=== PATIENT | female | born 1970 | race Caucasian/White ===

== ENCOUNTER 2019-09-02 11:16 | Inpatient (IN) | payer MEDICAID ==
[2019-09-02] MEDS ORDERED: Ondansetron 4 MG Tab.DIS PO ONE (12:12)
--- NOTE | 2019-09-02 12:27 | EDM.PDOCBH ---
ED HPI GENERAL MEDICAL PROBLEM - General Chief Complaint: Drug or Alcohol Abuse Stated Complaint: MENTAL EVEL Time Seen by Provider: 09/02/19 12:22 Source of Information: Reports: Patient History Limitations: Reports: No Limitations - History of Present Illness INITIAL COMMENTS - FREE TEXT/NARRATIVE: pt gives a 6 year history of binge drinking. She has drinking alot heavier recently. She at this point needs help and wants to go to detox. Onset: Gradual, Other (pt has been binging for about 1 week ) Duration: Hour(s): Location: Reports: Generalized Associated Symptoms: Reports: Cough, Loss of Appetite, Other (pt is nauseated) - Related Data Allergies Allergy/AdvReac Type Severity Reaction Status Date / Time amoxicillin [Amoxicillin] Allergy Hives Verified 10/04/18 10:46 levofloxacin [From Levaquin] Allergy Hives Verified 10/04/18 10:46 Sulfa (Sulfonamide Allergy Hives Verified 10/04/18 10:46 Antibiotics) Home Meds: Home Meds Aspirin [Vasquez Chewable] 81 mg PO DAILY 03/02/16 [History] Cholecalciferol (Vitamin D3) [Vitamin D3] 2,000 unit PO DAILY 03/02/16 [History] Cyanocobalamin (Vitamin B-12) [Cyanocobalamin Injection] 1,000 mcg IJ .[id number] 03/02/16 [History] Cyanocobalamin (Vitamin B-12) [Vitamin B-12] 1,000 mcg SL DAILY 03/02/16 [ History] Levothyroxine Sodium 50 mcg PO DAILY 03/02/16 [History] Multivit with Iron,Minerals [Flintstones Complete] 1 each PO DAILY 03/02/16 [ History] Simvastatin 10 mg PO DAILY 03/02/16 [History] Thiamine [Vitamin B-1] 100 mg PO BEDTIME 03/02/16 [History] Venlafaxine HCl 50 mg PO BID 03/02/16 [History] Hydrocodone/Acetaminophen [[place] 5-325 Tablet] 1 each PO Q12HR PRN #24 tablet [Rx] Past Medical History HEENT History: Reports: None Cardiovascular History: Reports: High Cholesterol Respiratory History: Reports: None Gastrointestinal History: Reports: Chronic Constipation, GERD, Hemorrhoids, Other (See Below) Other Gastrointestinal History: partial gastrectomy Genitourinary History: Reports: None 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 Musculoskeletal History: Reports: Arthritis, Back Pain, Chronic, Neck Pain, Chronic, Osteoarthritis Other Musculoskeletal History: bilateral hand pain Neurological History: Reports: None Psychiatric History: Reports: Anxiety, Depression, Panic Attack Endocrine/Metabolic History: Reports: Hypothyroidism, Vitamin D Deficiency Hematologic History: Reports: Anemia, B12 Deficiency, Folic Acid, Iron Deficiency Immunologic History: Reports: None Oncologic (Cancer) History: Reports: None Dermatologic History: Reports: None - Infectious Disease History Infectious Disease History: Reports: Chicken Pox - Past Surgical History Head Surgeries/Procedures: Reports: None HEENT Surgical History: Reports: Oral Surgery Cardiovascular Surgical History: Reports: None GI Surgical History: Reports: Cholecystectomy, EGD, Esophageal Dilatation, Phi Fundoplication Female Surgical History: Reports: Breast Biopsy, Section Endocrine Surgical History: Reports: None Musculoskeletal Surgical History: Reports: Arthroscopic Procedure, Carpal Tunnel , Shoulder Surgery Oncologic Surgical History: Reports: Lumpectomy Social & Family History - Tobacco Use Smoking Status *Q: Never Smoker - Caffeine Use Caffeine Use: Reports: Soda - Alcohol Use Date of Last Drink: 09/01/19 - Recreational Drug Use Recreational Drug Use: No ED ROS GENERAL - Review of Systems Review Of Systems: See Below Constitutional: Reports: No Symptoms HEENT: Reports: No Symptoms Respiratory: Reports: No Symptoms Cardiovascular: Reports: No Symptoms Endocrine: Reports: No Symptoms GI/Abdominal: Reports: Nausea, Other (pt had been drinking heavily for the past week. ) Musculoskeletal: Reports: No Symptoms Skin: Reports: No Symptoms Neurological: Reports: No Symptoms ED EXAM, BEHAVIORAL HEALTH - Physical Exam Exam: See Below Text/Narrative:: pt arrived feeling very shaky and with a history of very heavy drinking for the past week. Exam Limited By: No Limitations General Appearance: Alert, Mild Distress Ears: Normal TMs Nose: Normal Inspection Throat/Mouth: Normal Inspection Head: Atraumatic Neck: Normal Inspection Respiratory/Chest: No Respiratory Distress Cardiovascular: Regular Rate, Rhythm, Tachycardia GI/Abdominal: Soft, Non-Tender (Female) Exam: Deferred Rectal (Female) Exam: Deferred Back Exam: Normal Inspection Extremities: Normal Inspection Neurological: Alert, Other ( anxious) Psychiatric: Alert, Normal Cognition COURSE, BEHAVIORAL HEALTH COMP - Course Vital Signs: Last Vital Signs Temp 35.9 C L 09/02/19 11:51 Pulse 133 H 09/02/19 11:51 Resp 24 H 09/02/19 11:51 BP 147/101 H 09/02/19 11:51 Pulse Ox 97 09/02/19 11:51 Orders, Labs, Meds: Active Orders 24 hr Category Date Time Status ABG [BLOOD GAS ARTERIAL] [BG] Stat Lab 09/02/19 13:32 Ordered LACTIC ACID [CHEM] Stat Lab 09/02/19 13:27 Ordered LORazepam [Ativan] Med 09/02/19 14:00 Active 1 mg PO TID Sodium Chloride 0.9% [Normal Saline] 1,000 ml Med 09/02/19 13:00 Active IV ASDIRECTED Medication Orders Sodium Chloride (Normal Saline) 1,000 mls @ 999 mls/hr IV ASDIRECTED JAVIER Lorazepam (Ativan) 1 mg PO TID JAVIER Last Admin: 09/02/19 12:16 Dose: 1 mg Laboratory Tests 09/02/19 09/02/19 09/02/19 Range/Units 11:56 11:56 12:14 WBC 12.3 H (4.5-11.0) K/uL RBC 5.43 (3.30-5.50) M/uL Hgb 13.2 (12.0-15.0) g/dL Hct 40.8 (36.0-48.0) % MCV 75 L (80-98) fL MCH 24 L (27-31) pg MCHC 32 (32-36) % Plt Count 473 H (150-400) K/uL Neut % (Auto) 86 H (36-66) % Lymph % (Auto) 10 L (24-44) % [place] % (Auto) 4 (2-6) % Eos % (Auto) 0 L (2-4) % Baso % (Auto) 0 (0-1) % VBG pH (7.350-7.450) Sodium (140-148) mmol/L Potassium (3.6-5.2) mmol/L Chloride (100-108) mmol/L Carbon Dioxide (21-32) mmol/L Anion Gap (5.0-14.0) mmol/L BUN (7-18) mg/dL Creatinine (0.6-1.0) mg/dL Est Cr Clr Drug Dosing mL/min Estimated GFR (MDRD) (>60) Glucose (74-106) mg/dL Calcium (8.5-10.1) mg/dL Total Bilirubin (0.2-1.0) mg/dL AST (15-37) U/L ALT (12-78) U/L Alkaline Phosphatase (46-116) U/L Total Protein (6.4-8.2) g/dL Albumin (3.4-5.0) g/dL Globulin (2.3-3.5) g/dL Albumin/Globulin Ratio (1.2-2.2) Lipase (73-393) U/L Urine Color Yellow (YELLOW) Urine Appearance Cloudy A (CLEAR) Urine pH 5.5 (5.0-8.0) Ur Specific [place] >= 1.030 (1.008-1.030) Urine Protein 100 H (NEGATIVE) mg/dL Urine Glucose (UA) Negative (NEGATIVE) mg/dL Urine Ketones Negative (NEGATIVE) mg/dL Urine Occult Blood Trace-lysed H (NEGATIVE) Urine Nitrite Negative (NEGATIVE) Urine Bilirubin Negative (NEGATIVE) Urine Urobilinogen 0.2 (0.2-1.0) EU/dL Ur Leukocyte Esterase Negative (NEGATIVE) Urine RBC 0-5 (0-5) Urine WBC 0-5 (0-5) Ur Epithelial Cells Few Amorphous Sediment Few Urine Bacteria Moderate Urine Mucus Few Urine Other See note Salicylates (2.0-20.0) mg/dL Urine Opiates Screen Negative (NEGATIVE) Ur Oxycodone Screen Negative (NEGATIVE) Urine Methadone Screen Negative (NEGATIVE) Ur Propoxyphene Screen Negative (NEGATIVE) Ur Barbiturates Screen Negative (NEGATIVE) Ur Tricyclics Screen Negative (NEGATIVE) Ur Phencyclidine Scrn Negative (NEGATIVE) Ur Amphetamine Screen Negative (NEGATIVE) U Methamphetamines Scrn Negative (NEGATIVE) Urine MDMA Screen Negative (NEGATIVE) U Benzodiazepines Scrn Negative (NEGATIVE) U Cocaine Metab Screen Negative (NEGATIVE) U Marijuana (THC) Screen Negative (NEGATIVE) Ethyl Alcohol mg/dL 09/02/19 09/02/19 09/02/19 Range/Units 12:14 12:14 12:47 WBC (4.5-11.0) K/uL RBC (3.30-5.50) M/uL Hgb (12.0-15.0) g/dL Hct (36.0-48.0) % MCV (80-98) fL MCH (27-31) pg MCHC (32-36) % Plt Count (150-400) K/uL Neut % (Auto) (36-66) % Lymph % (Auto) (24-44) % [place] % (Auto) (2-6) % Eos % (Auto) (2-4) % Baso % (Auto) (0-1) % VBG pH 7.231 L (7.350-7.450) Sodium 134 L (140-148) mmol/L Potassium 4.0 (3.6-5.2) mmol/L Chloride 96 L (100-108) mmol/L Carbon Dioxide 11 L (21-32) mmol/L Anion Gap 31.0 H (5.0-14.0) mmol/L BUN 31 H (7-18) mg/dL Creatinine 1.0 (0.6-1.0) mg/dL Est Cr Clr Drug Dosing 55.68 mL/min Estimated GFR (MDRD) 59 L (>60) Glucose 152 H (74-106) mg/dL Calcium 8.1 L (8.5-10.1) mg/dL Total Bilirubin 0.7 (0.2-1.0) mg/dL AST 61 H (15-37) U/L ALT 70 (12-78) U/L Alkaline Phosphatase 147 H (46-116) U/L Total Protein 8.0 (6.4-8.2) g/dL Albumin 4.0 (3.4-5.0) g/dL Globulin 4.0 H (2.3-3.5) g/dL Albumin/Globulin Ratio 1.0 L (1.2-2.2) Lipase (73-393) U/L Urine Color (YELLOW) Urine Appearance (CLEAR) Urine pH (5.0-8.0) Ur Specific [place] (1.008-1.030) Urine Protein (NEGATIVE) mg/dL Urine Glucose (UA) (NEGATIVE) mg/dL Urine Ketones (NEGATIVE) mg/dL Urine Occult Blood (NEGATIVE) Urine Nitrite (NEGATIVE) Urine Bilirubin (NEGATIVE) Urine Urobilinogen (0.2-1.0) EU/dL Ur Leukocyte Esterase (NEGATIVE) Urine RBC (0-5) Urine WBC (0-5) Ur Epithelial Cells Amorphous Sediment Urine Bacteria Urine Mucus Urine Other Salicylates (2.0-20.0) mg/dL Urine Opiates Screen (NEGATIVE) Ur Oxycodone Screen (NEGATIVE) Urine Methadone Screen (NEGATIVE) Ur Propoxyphene Screen (NEGATIVE) Ur Barbiturates Screen (NEGATIVE) Ur Tricyclics Screen (NEGATIVE) Ur Phencyclidine Scrn (NEGATIVE) Ur Amphetamine Screen (NEGATIVE) U Methamphetamines Scrn (NEGATIVE) Urine MDMA Screen (NEGATIVE) U Benzodiazepines Scrn (NEGATIVE) U Cocaine Metab Screen (NEGATIVE) U Marijuana (THC) Screen (NEGATIVE) Ethyl Alcohol 138 mg/dL 09/02/19 09/02/19 Range/Units 12:48 13:27 WBC (4.5-11.0) K/uL RBC (3.30-5.50) M/uL Hgb (12.0-15.0) g/dL Hct (36.0-48.0) % MCV (80-98) fL MCH (27-31) pg MCHC (32-36) % Plt Count (150-400) K/uL Neut % (Auto) (36-66) % Lymph % (Auto) (24-44) % [place] % (Auto) (2-6) % Eos % (Auto) (2-4) % Baso % (Auto) (0-1) % VBG pH (7.350-7.450) Sodium (140-148) mmol/L Potassium (3.6-5.2) mmol/L Chloride (100-108) mmol/L Carbon Dioxide (21-32) mmol/L Anion Gap (5.0-14.0) mmol/L BUN (7-18) mg/dL Creatinine (0.6-1.0) mg/dL Est Cr Clr Drug Dosing mL/min Estimated GFR (MDRD) (>60) Glucose (74-106) mg/dL Calcium (8.5-10.1) mg/dL Total Bilirubin (0.2-1.0) mg/dL AST (15-37) U/L ALT (12-78) U/L Alkaline Phosphatase (46-116) U/L Total Protein (6.4-8.2) g/dL Albumin (3.4-5.0) g/dL Globulin (2.3-3.5) g/dL Albumin/Globulin Ratio (1.2-2.2) Lipase 275 (73-393) U/L Urine Color (YELLOW) Urine Appearance (CLEAR) Urine pH (5.0-8.0) Ur Specific [place] (1.008-1.030) Urine Protein (NEGATIVE) mg/dL Urine Glucose (UA) (NEGATIVE) mg/dL Urine Ketones (NEGATIVE) mg/dL Urine Occult Blood (NEGATIVE) Urine Nitrite (NEGATIVE) Urine Bilirubin (NEGATIVE) Urine Urobilinogen (0.2-1.0) EU/dL Ur Leukocyte Esterase (NEGATIVE) Urine RBC (0-5) Urine WBC (0-5) Ur Epithelial Cells Amorphous Sediment Urine Bacteria Urine Mucus Urine Other Salicylates 1.6 L (2.0-20.0) mg/dL Urine Opiates Screen (NEGATIVE) Ur Oxycodone Screen (NEGATIVE) Urine Methadone Screen (NEGATIVE) Ur Propoxyphene Screen (NEGATIVE) Ur Barbiturates Screen (NEGATIVE) Ur Tricyclics Screen (NEGATIVE) Ur Phencyclidine Scrn (NEGATIVE) Ur Amphetamine Screen (NEGATIVE) U Methamphetamines Scrn (NEGATIVE) Urine MDMA Screen (NEGATIVE) U Benzodiazepines Scrn (NEGATIVE) U Cocaine Metab Screen (NEGATIVE) U Marijuana (THC) Screen (NEGATIVE) Ethyl Alcohol mg/dL Medications Generic Name Dose Route Start Last Admin Trade Name Freq PRN Reason Stop Dose Admin Sodium Chloride 1,000 mls @ 999 mls/hr 09/02/19 13:00 Normal Saline IV ASDIRECTED JAVIER Lorazepam 1 mg 09/02/19 14:00 09/02/19 12:16 Ativan PO 1 mg TID JAVIER Administration Discontinued Medications Generic Name Dose Route Start Last Admin Trade Name Freq PRN Reason Stop Dose Admin Ondansetron HCl 4 mg 09/02/19 12:12 09/02/19 12:16 Zofran Odt PO 09/02/19 12:13 4 mg ONETIME ONE Administration Medical Clearance: 09/02/19 12:25 pt arrived with a history of binge drinking for the opast week. These episodes are more and more frequent. 09/02/19 13:40 pt was found to have a ph of 7.2. She has a wide anion gap. She has a co2 of 11. Departure - Departure Time of Disposition: 13:36 Disposition: Admitted As Inpatient 65 Condition: Fair Clinical Impression: Metabolic acidosis, Hyperglycemia, Drinking binge - Discharge Information Referrals: Michelle Awad CNM [Primary Care Provider] - Forms: ED Department Discharge Care Plan Goals: admit to Dr Bazan Sepsis Event Note - Evaluation Sepsis Screening Result: No Definite Risk - Focused Exam Vital Signs: Vital Signs Temp Pulse Resp BP Pulse Ox 09/02/19 11:51 35.9 C L 133 H 24 H 147/101 H 97 09/02/19 11:41 35.9 C L 133 H 24 H 147/101 H 97 Date Exam was Performed: 09/02/19 Time Exam was Performed: 13:38 - My Orders Last 24 Hours: My Active Orders 09/02/19 13:00 Sodium Chloride 0.9% [Normal Saline] 1,000 ml IV ASDIRECTED 09/02/19 13:27 LACTIC ACID [CHEM] Stat 09/02/19 13:32 ABG [BLOOD GAS ARTERIAL] [BG] Stat 09/02/19 14:00 LORazepam [Ativan] 1 mg PO TID - Assessment/Plan Last 24 Hours: My Active Orders 09/02/19 13:00 Sodium Chloride 0.9% [Normal Saline] 1,000 ml IV ASDIRECTED 09/02/19 13:27 LACTIC ACID [CHEM] Stat 09/02/19 13:32 ABG [BLOOD GAS ARTERIAL] [BG] Stat 09/02/19 14:00 LORazepam [Ativan] 1 mg PO TID
[2019-09-02] MEDS ORDERED: Sodium Chloride 0.9% 1,000 ML IV SCH (13:00)
[2019-09-02] MEDS ORDERED: LORazepam 1 MG Tab PO SCH (14:00)
--- NOTE | 2019-09-02 14:52 | PCM.HP.2 ---
H&P History of Present Illness - General Date of Service: 09/02/19 Admit Problem/Dx: Admission Diagnosis/Problem Admission Diagnosis/Problem Metabolic acidosis Source of Information: Patient, Family, Provider, RN Notes Reviewed History Limitations: Reports: No Limitations - History of Present Illness Initial Comments - Free Text/Narative: Ms. Meyer is a 49-year-old woman who was admitted through the emergency department with elevated anion gap metabolic acidosis and elevated lactic acid level, secondary to chronic alcohol abuse. She has a longstanding history of heavy alcohol use and has consumed alcohol daily over the past 8 months. She decided to get some help today and presented to the emergency department for medical clearance prior to going to detox. Laboratory tests show significant metabolic acidosis with a carbon dioxide level of 11, anion gap of 31, and arterial blood gases consistent with metabolic acidosis with respiratory compensation. She strongly denies any history of methanol intake, ethylene glycol, or inhalations. Salicylate level is low and she has no history of diabetes or evidence of ketoacidosis. Alcohol level was elevated on admission, she is already showing some symptoms of alcohol withdrawal. - Related Data Allergies/Adverse Reactions: Allergies Allergy/AdvReac Type Severity Reaction Status Date / Time amoxicillin [Amoxicillin] Allergy Hives Verified 10/04/18 10:46 levofloxacin [From Levaquin] Allergy Hives Verified 10/04/18 10:46 Sulfa (Sulfonamide Allergy Hives Verified 10/04/18 10:46 Antibiotics) Home Medications: Home Meds Aspirin [Vasquez Chewable] 81 mg PO DAILY 03/02/16 [History] Cholecalciferol (Vitamin D3) [Vitamin D3] 2,000 unit PO DAILY 03/02/16 [History] Cyanocobalamin (Vitamin B-12) [Cyanocobalamin Injection] 1,000 mcg [id number] 03/02/16 [History] Cyanocobalamin (Vitamin B-12) [Vitamin B-12] 1,000 mcg SL DAILY 03/02/16 [ History] Levothyroxine Sodium 50 mcg PO DAILY 03/02/16 [History] Multivit with Iron,Minerals [Flintstones Complete] 1 each PO DAILY 03/02/16 [ History] Simvastatin 10 mg PO DAILY 03/02/16 [History] Thiamine [Vitamin B-1] 100 mg PO BEDTIME 03/02/16 [History] Venlafaxine HCl 50 mg PO BID 03/02/16 [History] Hydrocodone/Acetaminophen [Petrolia 5-325 Tablet] 1 each PO Q12HR PRN #24 tablet [Rx] Past Medical History HEENT History: Reports: None Cardiovascular History: Reports: High Cholesterol Respiratory History: Reports: None Gastrointestinal History: Reports: Chronic Constipation, GERD, Hemorrhoids, Other (See Below) Other Gastrointestinal History: partial gastrectomy Genitourinary History: Reports: None COKEMAN History: Reports: Other OB/BYN History: c section X3 Musculoskeletal History: Reports: Arthritis, Back Pain, Chronic, Neck Pain, Chronic, Osteoarthritis Other Musculoskeletal History: bilateral hand pain Neurological History: Reports: None Psychiatric History: Reports: Anxiety, Depression, Panic Attack Endocrine/Metabolic History: Reports: Hypothyroidism, Vitamin D Deficiency Hematologic History: Reports: Anemia, B12 Deficiency, Folic Acid, Iron Deficiency Immunologic History: Reports: None Oncologic (Cancer) History: Reports: None Dermatologic History: Reports: None - Infectious Disease History Infectious Disease History: Reports: Chicken Pox - Past Surgical History Head Surgeries/Procedures: Reports: None HEENT Surgical History: Reports: Oral Surgery Cardiovascular Surgical History: Reports: None GI Surgical History: Reports: Cholecystectomy, EGD, Esophageal Dilatation, Phi Fundoplication Female Surgical History: Reports: Breast Biopsy, Section Endocrine Surgical History: Reports: None Musculoskeletal Surgical History: Reports: Arthroscopic Procedure, Carpal Tunnel , Shoulder Surgery Oncologic Surgical History: Reports: Lumpectomy Social & Family History - Tobacco Use Smoking Status *Q: Never Smoker - Caffeine Use Caffeine Use: Reports: Soda - Alcohol Use Date of Last Drink: 09/01/19 - Recreational Drug Use Recreational Drug Use: No H&P Review of Systems - Review of Systems: Review Of Systems: See Below General: Reports: Malaise, Weakness, Fatigue. Denies: Fever, Chills HEENT: Reports: No Symptoms Pulmonary: Reports: No Symptoms Cardiovascular: Reports: No Symptoms Gastrointestinal: Reports: No Symptoms Genitourinary: Reports: No Symptoms Musculoskeletal: Reports: No Symptoms Skin: Reports: No Symptoms Psychiatric: Reports: No Symptoms Neurological: Reports: No Symptoms Hematologic/Lymphatic: Reports: No Symptoms Immunologic: Reports: No Symptoms Exam - Exam Exam: See Below - Vital Signs Vital Signs: Last Vital Signs Temp 96.7 F L 09/02/19 11:51 Pulse 124 H 09/02/19 14:40 Resp 16 09/02/19 14:40 BP 160/91 H 09/02/19 14:40 Pulse Ox 97 09/02/19 14:40 Weight: 149 lb 14.629 oz - Exam Quality Assessment: DVT Prophylaxis General: Alert, Oriented, Cooperative HEENT: Conjunctiva Clear, Hearing Intact, Normal Nasal Septum, Posterior Pharynx Clear, Pupils Equal. No: Mucosa Moist & [place] Neck: Supple, Trachea Midline, +2 Carotid Pulse wo Bruit Lungs: Clear to Auscultation, Normal Respiratory Effort Cardiovascular: Regular Rate, Regular Rhythm, Normal S1, Normal S2. No: Systolic Murmur, Diastolic Murmur GI/Abdominal Exam: Soft, Non-Tender, No Organomegaly, No Distention Back Exam: Normal Inspection, Full Range of Motion Extremities: Non-Tender, No Pedal Edema Skin: Warm, Dry, Intact Neurological: Cranial Nerves Intact, Strength Equal Bilateral, Normal Speech, Normal Tone, Sensation Intact. No: Focal Deficit Neuro Extensive - Mental Status: Alert, Oriented x3, Normal Mood/Affect, Normal Cognition, Memory Intact - Patient Data Lab Results Last 24 hrs: Laboratory Results - last 24 hr 09/02/19 09/02/19 09/02/19 Range/Units 11:56 11:56 12:14 WBC 12.3 H (4.5-11.0) K/uL RBC 5.43 (3.30-5.50) M/uL Hgb 13.2 (12.0-15.0) g/dL Hct 40.8 (36.0-48.0) % MCV 75 L (80-98) fL MCH 24 L (27-31) pg MCHC 32 (32-36) % Plt Count 473 H (150-400) K/uL Neut % (Auto) 86 H (36-66) % Lymph % (Auto) 10 L (24-44) % [place] % (Auto) 4 (2-6) % Eos % (Auto) 0 L (2-4) % Baso % (Auto) 0 (0-1) % Puncture Site ABG pH (7.350-7.450) ABG pCO2 (35.0-42.0) mmHg ABG pO2 (75.0-100.0) mmHg ABG HCO3 (22.0-26.0) mmol/L ABG Total CO2 (21.0-25.0) mmol/L ABG O2 Saturation (95.0-98.0) % ABG O2 Content (15.0-23.0) %vol ABG Base Excess mm/L ABG Hemoglobin (12.0-16.0) g/dL ABG Oxyhemoglobin % ABG Carboxyhemoglobin (0.0-1.6) % ABG Methemoglobin % [place] Test VBG pH (7.350-7.450) O2 Delivery Device Sodium (140-148) mmol/L Potassium (3.6-5.2) mmol/L Chloride (100-108) mmol/L Carbon Dioxide (21-32) mmol/L Anion Gap (5.0-14.0) mmol/L BUN (7-18) mg/dL Creatinine (0.6-1.0) mg/dL Est Cr Clr Drug Dosing mL/min Estimated GFR (MDRD) (>60) Glucose (74-106) mg/dL Lactic Acid (0.4-2.0) mmol/L Calcium (8.5-10.1) mg/dL Total Bilirubin (0.2-1.0) mg/dL AST (15-37) U/L ALT (12-78) U/L Alkaline Phosphatase (46-116) U/L Total Protein (6.4-8.2) g/dL Albumin (3.4-5.0) g/dL Globulin (2.3-3.5) g/dL Albumin/Globulin Ratio (1.2-2.2) Lipase (73-393) U/L Urine Color Yellow (YELLOW) Urine Appearance Cloudy A (CLEAR) Urine pH 5.5 (5.0-8.0) Ur Specific Tiline >= 1.030 (1.008-1.030) Urine Protein 100 H (NEGATIVE) mg/dL Urine Glucose (UA) Negative (NEGATIVE) mg/dL Urine Ketones Negative (NEGATIVE) mg/dL Urine Occult Blood Trace-lysed H (NEGATIVE) Urine Nitrite Negative (NEGATIVE) Urine Bilirubin Negative (NEGATIVE) Urine Urobilinogen 0.2 (0.2-1.0) EU/dL Ur Leukocyte Esterase Negative (NEGATIVE) Urine RBC 0-5 (0-5) Urine WBC 0-5 (0-5) Ur Epithelial Cells Few Amorphous Sediment Few Urine Bacteria Moderate Urine Mucus Few Urine Other See note Salicylates (2.0-20.0) mg/dL Urine Opiates Screen Negative (NEGATIVE) Ur Oxycodone Screen Negative (NEGATIVE) Urine Methadone Screen Negative (NEGATIVE) Ur Propoxyphene Screen Negative (NEGATIVE) Ur Barbiturates Screen Negative (NEGATIVE) Ur Tricyclics Screen Negative (NEGATIVE) Ur Phencyclidine Scrn Negative (NEGATIVE) Ur Amphetamine Screen Negative (NEGATIVE) U Methamphetamines Scrn Negative (NEGATIVE) Urine MDMA Screen Negative (NEGATIVE) U Benzodiazepines Scrn Negative (NEGATIVE) U Cocaine Metab Screen Negative (NEGATIVE) U Marijuana (THC) Screen Negative (NEGATIVE) Ethyl Alcohol mg/dL 09/02/19 09/02/19 09/02/19 Range/Units 12:14 12:14 12:47 WBC (4.5-11.0) K/uL RBC (3.30-5.50) M/uL Hgb (12.0-15.0) g/dL Hct (36.0-48.0) % MCV (80-98) fL MCH (27-31) pg MCHC (32-36) % Plt Count (150-400) K/uL Neut % (Auto) (36-66) % Lymph % (Auto) (24-44) % [place] % (Auto) (2-6) % Eos % (Auto) (2-4) % Baso % (Auto) (0-1) % Puncture Site ABG pH (7.350-7.450) ABG pCO2 (35.0-42.0) mmHg ABG pO2 (75.0-100.0) mmHg ABG HCO3 (22.0-26.0) mmol/L ABG Total CO2 (21.0-25.0) mmol/L ABG O2 Saturation (95.0-98.0) % ABG O2 Content (15.0-23.0) %vol ABG Base Excess mm/L ABG Hemoglobin (12.0-16.0) g/dL ABG Oxyhemoglobin % ABG Carboxyhemoglobin (0.0-1.6) % ABG Methemoglobin % [place] Test VBG pH 7.231 L (7.350-7.450) O2 Delivery Device Sodium 134 L (140-148) mmol/L Potassium 4.0 (3.6-5.2) mmol/L Chloride 96 L (100-108) mmol/L Carbon Dioxide 11 L (21-32) mmol/L Anion Gap 31.0 H (5.0-14.0) mmol/L BUN 31 H (7-18) mg/dL Creatinine 1.0 (0.6-1.0) mg/dL Est Cr Clr Drug Dosing 55.68 mL/min Estimated GFR (MDRD) 59 L (>60) Glucose 152 H (74-106) mg/dL Lactic Acid (0.4-2.0) mmol/L Calcium 8.1 L (8.5-10.1) mg/dL Total Bilirubin 0.7 (0.2-1.0) mg/dL AST 61 H (15-37) U/L ALT 70 (12-78) U/L Alkaline Phosphatase 147 H (46-116) U/L Total Protein 8.0 (6.4-8.2) g/dL Albumin 4.0 (3.4-5.0) g/dL Globulin 4.0 H (2.3-3.5) g/dL Albumin/Globulin Ratio 1.0 L (1.2-2.2) Lipase (73-393) U/L Urine Color (YELLOW) Urine Appearance (CLEAR) Urine pH (5.0-8.0) Ur Specific Tiline (1.008-1.030) Urine Protein (NEGATIVE) mg/dL Urine Glucose (UA) (NEGATIVE) mg/dL Urine Ketones (NEGATIVE) mg/dL Urine Occult Blood (NEGATIVE) Urine Nitrite (NEGATIVE) Urine Bilirubin (NEGATIVE) Urine Urobilinogen (0.2-1.0) EU/dL Ur Leukocyte Esterase (NEGATIVE) Urine RBC (0-5) Urine WBC (0-5) Ur Epithelial Cells Amorphous Sediment Urine Bacteria Urine Mucus Urine Other Salicylates (2.0-20.0) mg/dL Urine Opiates Screen (NEGATIVE) Ur Oxycodone Screen (NEGATIVE) Urine Methadone Screen (NEGATIVE) Ur Propoxyphene Screen (NEGATIVE) Ur Barbiturates Screen (NEGATIVE) Ur Tricyclics Screen (NEGATIVE) Ur Phencyclidine Scrn (NEGATIVE) Ur Amphetamine Screen (NEGATIVE) U Methamphetamines Scrn (NEGATIVE) Urine MDMA Screen (NEGATIVE) U Benzodiazepines Scrn (NEGATIVE) U Cocaine Metab Screen (NEGATIVE) U Marijuana (THC) Screen (NEGATIVE) Ethyl Alcohol 138 mg/dL 09/02/19 09/02/19 09/02/19 Range/Units 12:48 13:27 13:27 WBC (4.5-11.0) K/uL RBC (3.30-5.50) M/uL Hgb (12.0-15.0) g/dL Hct (36.0-48.0) % MCV (80-98) fL MCH (27-31) pg MCHC (32-36) % Plt Count (150-400) K/uL Neut % (Auto) (36-66) % Lymph % (Auto) (24-44) % [place] % (Auto) (2-6) % Eos % (Auto) (2-4) % Baso % (Auto) (0-1) % Puncture Site ABG pH (7.350-7.450) ABG pCO2 (35.0-42.0) mmHg ABG pO2 (75.0-100.0) mmHg ABG HCO3 (22.0-26.0) mmol/L ABG Total CO2 (21.0-25.0) mmol/L ABG O2 Saturation (95.0-98.0) % ABG O2 Content (15.0-23.0) %vol ABG Base Excess mm/L ABG Hemoglobin (12.0-16.0) g/dL ABG Oxyhemoglobin % ABG Carboxyhemoglobin (0.0-1.6) % ABG Methemoglobin % [place] Test VBG pH (7.350-7.450) O2 Delivery Device Sodium (140-148) mmol/L Potassium (3.6-5.2) mmol/L Chloride (100-108) mmol/L Carbon Dioxide (21-32) mmol/L Anion Gap (5.0-14.0) mmol/L BUN (7-18) mg/dL Creatinine (0.6-1.0) mg/dL Est Cr Clr Drug Dosing mL/min Estimated GFR (MDRD) (>60) Glucose (74-106) mg/dL Lactic Acid 11.4 H (0.4-2.0) mmol/L Calcium (8.5-10.1) mg/dL Total Bilirubin (0.2-1.0) mg/dL AST (15-37) U/L ALT (12-78) U/L Alkaline Phosphatase (46-116) U/L Total Protein (6.4-8.2) g/dL Albumin (3.4-5.0) g/dL Globulin (2.3-3.5) g/dL Albumin/Globulin Ratio (1.2-2.2) Lipase 275 (73-393) U/L Urine Color (YELLOW) Urine Appearance (CLEAR) Urine pH (5.0-8.0) Ur Specific Tiline (1.008-1.030) Urine Protein (NEGATIVE) mg/dL Urine Glucose (UA) (NEGATIVE) mg/dL Urine Ketones (NEGATIVE) mg/dL Urine Occult Blood (NEGATIVE) Urine Nitrite (NEGATIVE) Urine Bilirubin (NEGATIVE) Urine Urobilinogen (0.2-1.0) EU/dL Ur Leukocyte Esterase (NEGATIVE) Urine RBC (0-5) Urine WBC (0-5) Ur Epithelial Cells Amorphous Sediment Urine Bacteria Urine Mucus Urine Other Salicylates 1.6 L (2.0-20.0) mg/dL Urine Opiates Screen (NEGATIVE) Ur Oxycodone Screen (NEGATIVE) Urine Methadone Screen (NEGATIVE) Ur Propoxyphene Screen (NEGATIVE) Ur Barbiturates Screen (NEGATIVE) Ur Tricyclics Screen (NEGATIVE) Ur Phencyclidine Scrn (NEGATIVE) Ur Amphetamine Screen (NEGATIVE) U Methamphetamines Scrn (NEGATIVE) Urine MDMA Screen (NEGATIVE) U Benzodiazepines Scrn (NEGATIVE) U Cocaine Metab Screen (NEGATIVE) U Marijuana (THC) Screen (NEGATIVE) Ethyl Alcohol mg/dL 09/02/19 Range/Units 13:32 WBC (4.5-11.0) K/uL RBC (3.30-5.50) M/uL Hgb (12.0-15.0) g/dL Hct (36.0-48.0) % MCV (80-98) fL MCH (27-31) pg MCHC (32-36) % Plt Count (150-400) K/uL Neut % (Auto) (36-66) % Lymph % (Auto) (24-44) % [place] % (Auto) (2-6) % Eos % (Auto) (2-4) % Baso % (Auto) (0-1) % Puncture Site Lt radial ABG pH 7.293 L (7.350-7.450) ABG pCO2 24.8 L (35.0-42.0) mmHg ABG pO2 118.0 H (75.0-100.0) mmHg ABG HCO3 11.6 L (22.0-26.0) mmol/L ABG Total CO2 10.6 L (21.0-25.0) mmol/L ABG O2 Saturation 96.2 (95.0-98.0) % ABG O2 Content 17.5 (15.0-23.0) %vol ABG Base Excess -13.2 mm/L ABG Hemoglobin 13.2 (12.0-16.0) g/dL ABG Oxyhemoglobin 93.6 % ABG Carboxyhemoglobin 0.5 (0.0-1.6) % ABG Methemoglobin 2.2 % [place] Test Passed VBG pH (7.350-7.450) O2 Delivery Device Room air Sodium (140-148) mmol/L Potassium (3.6-5.2) mmol/L Chloride (100-108) mmol/L Carbon Dioxide (21-32) mmol/L Anion Gap (5.0-14.0) mmol/L BUN (7-18) mg/dL Creatinine (0.6-1.0) mg/dL Est Cr Clr Drug Dosing mL/min Estimated GFR (MDRD) (>60) Glucose (74-106) mg/dL Lactic Acid (0.4-2.0) mmol/L Calcium (8.5-10.1) mg/dL Total Bilirubin (0.2-1.0) mg/dL AST (15-37) U/L ALT (12-78) U/L Alkaline Phosphatase (46-116) U/L Total Protein (6.4-8.2) g/dL Albumin (3.4-5.0) g/dL Globulin (2.3-3.5) g/dL Albumin/Globulin Ratio (1.2-2.2) Lipase (73-393) U/L Urine Color (YELLOW) Urine Appearance (CLEAR) Urine pH (5.0-8.0) Ur Specific Tiline (1.008-1.030) Urine Protein (NEGATIVE) mg/dL Urine Glucose (UA) (NEGATIVE) mg/dL Urine Ketones (NEGATIVE) mg/dL Urine Occult Blood (NEGATIVE) Urine Nitrite (NEGATIVE) Urine Bilirubin (NEGATIVE) Urine Urobilinogen (0.2-1.0) EU/dL Ur Leukocyte Esterase (NEGATIVE) Urine RBC (0-5) Urine WBC (0-5) Ur Epithelial Cells Amorphous Sediment Urine Bacteria Urine Mucus Urine Other Salicylates (2.0-20.0) mg/dL Urine Opiates Screen (NEGATIVE) Ur Oxycodone Screen (NEGATIVE) Urine Methadone Screen (NEGATIVE) Ur Propoxyphene Screen (NEGATIVE) Ur Barbiturates Screen (NEGATIVE) Ur Tricyclics Screen (NEGATIVE) Ur Phencyclidine Scrn (NEGATIVE) Ur Amphetamine Screen (NEGATIVE) U Methamphetamines Scrn (NEGATIVE) Urine MDMA Screen (NEGATIVE) U Benzodiazepines Scrn (NEGATIVE) U Cocaine Metab Screen (NEGATIVE) U Marijuana (THC) Screen (NEGATIVE) Ethyl Alcohol mg/dL Result Diagrams: 09/02/19 12:14 09/02/19 12:14 Sepsis Event Note - Evaluation Sepsis Screening Result: No Definite Risk - Focused Exam Vital Signs: Vital Signs Temp Pulse Resp BP Pulse Ox 09/02/19 14:40 124 H 16 160/91 H 97 09/02/19 11:51 96.7 F L 133 H 24 H 147/101 H 97 09/02/19 11:41 96.7 F L 133 H 24 H 147/101 H 97 Date Exam was Performed: 09/02/19 Time Exam was Performed: 15:30 *Q Meaningful Use (ADM) - VTE Risk Assess *Q Each Risk Factor Represents 1 Point: Age 41 - 59 years, Obesity ( BMI > 25 kg/m2 ) Total Score 1 Point Risk Factors: 2 Each Risk Factor Represents 2 Points: None Total Score 2 Point Risk Factors: 0 Each Risk Factor Represents 3 Points: None Total Score 3 Point Risk Factors: 0 Each Risk Factor Represents 5 Points: None Total Score 5 Point Risk Factors: 0 Venous Thromboembolism Risk Factor Score *Q: 2 Problem List Initiated/Reviewed/Updated: Yes Orders Last 24hrs: Active Orders 24 hr Category Date Time Status Patient Status Manage Transfer [TRANSFER] Routine ADT 09/02/19 14:38 Ordered LORazepam [Ativan] Med 09/02/19 14:00 Active 1 mg PO TID Sodium Chloride 0.9% [Normal Saline] 1,000 ml Med 09/02/19 13:00 Active IV ASDIRECTED Resuscitation Status Routine Resus Stat 03/02/20 14:42 Ordered Medication Orders Sodium Chloride (Normal Saline) 1,000 mls @ 999 mls/hr IV ASDIRECTED [facility] Last Admin: 09/02/19 14:03 Dose: 999 mls/hr Lorazepam (Ativan) 1 mg PO TID [facility] Last Admin: 09/02/19 12:16 Dose: 1 mg Assessment/Plan Comment:: ASSESSMENT AND PLAN ELEVATED ANION GAP METABOLIC ACIDOSIS-likely secondary to chronic alcohol use with dehydration and elevation in lactic acid level. No evidence of acute sepsis or other ingestions. -Vigorous IV fluid replacement -Recheck labs including BMP and lactic acid level later today and in a.m. CHRONIC ALCOHOL ABUSE-will need to monitor closely for any evidence of alcohol withdrawal -Alcohol withdrawal protocol -Gabapentin 400 mg every 8 hours x4 days, then 200 mg every 8 hours for an additional 4 days. -We will provide information and resources for alcohol treatment after discharge CHRONIC ANXIETY-likely a contributing factor to ongoing alcohol use -Increase Effexor to 75 mg twice daily MAINTENANCE ISSUES -DVT prophylaxis; SCUDs -GI prophylaxis; not indicated -Polanco catheter; not indicated -Nutrition; regular diet -Nicotine dependence; not required CODE STATUS-FULL CODE ADMISSION STATUS-patient will be admitted to inpatient status, expect at least a 2 night hospital stay for evaluation and management of problems as outlined above. At the time of this admission I do not reasonably expected evaluation and management of this problem will require more than a 96 hour hospital stay. DISPOSITION-anticipate discharge to home after the hospital stay. PRIMARY CARE PROVIDER-Michelle Castaneda - Mortality Measure Prognosis:: Good
[2019-09-02] MEDS ORDERED: Polyethylene Glycol 3350 Powder 17 GM Packet PO PRN (15:30)
[2019-09-02] MEDS ORDERED: Sodium Chloride 0.9% 10 ML Syringe FLUSH PRN (15:30)
[2019-09-02] MEDS ORDERED: Ondansetron 4 MG/2 ML SDV IV PRN (15:30)
[2019-09-02] MEDS ORDERED: Acetaminophen 325 MG Tab PO PRN (15:30)
[2019-09-02] MEDS: LORazepam 1 MG Tab PO SCH ×2 (15:39→17:28)
[2019-09-02] MEDS: Sodium Chloride 0.9% 1,000 ML IV SCH ×3 (15:40→23:44)
[2019-09-02] MEDS ORDERED: MVI, Adult with Vitamin K 10 ML, Thiamine 100 MG, Folic Acid 1 MG, Magnesium Sulfate 2 ... IV ONE ×5 (16:00)
[2019-09-02] MEDS: Gabapentin 400 MG Cap PO SCH (16:25)
[2019-09-02] MEDS: Folic Acid 1 MG Tab PO SCH (16:25)
[2019-09-02] MEDS: LORazepam 2 MG/ML SDV IV SCH ×3 (18:32→21:53)
[2019-09-02] MEDS: Venlafaxine 75 MG Tab PO SCH (20:04)
[2019-09-02] MEDS ORDERED: Thiamine 100 MG Tab PO SCH (21:00)
[2019-09-03] MEDS: LORazepam 2 MG/ML SDV IV SCH (00:33)
[2019-09-03] MEDS: Gabapentin 400 MG Cap PO SCH ×2 (01:42→08:20)
[2019-09-03] MEDS ORDERED: Levothyroxine 50 MCG Tab PO SCH (07:30)
[2019-09-03 07:54] VITALS: BP 120/85; PULSE 84
[2019-09-03] MEDS: Folic Acid 1 MG Tab PO SCH (08:20)
[2019-09-03] MEDS: Venlafaxine 75 MG Tab PO SCH (08:20)
[2019-09-03] MEDS: Sodium Chloride 0.9% 1,000 ML IV SCH (08:41)
[2019-09-03] MEDS: LORazepam 1 MG Tab PO SCH (08:41)
[2019-09-03] MEDS ORDERED: Aspirin 81 MG Tab.Chew PO SCH (09:00)
[2019-09-03] MEDS ORDERED: Simvastatin 20 MG Tab PO SCH ×2 (09:00→21:00)
--- NOTE | 2019-09-03 10:25 | PCM.DCSUM1 ---
Discharge Summary - Hospital Course Brief History: Ms. Meyer is a 49-year-old woman who was admitted through the emergency department with alcohol intoxication and elevated anion gap metabolic acidosis secondary to chronic alcohol use and dehydration. - Discharge Data Discharge Date: 09/03/19 Discharge Disposition: DC/Tfer to Other 70 Condition: Fair - Referral to [facility] Primary Care Physician: Michelle Awad CNM - Patient Summary/Data Hospital Course: Ms. Meyer is a 49-year-old woman who was admitted through the emergency department with elevated anion gap metabolic acidosis and elevated lactic acid level, secondary to chronic alcohol abuse. She has a longstanding history of heavy alcohol use and has consumed alcohol daily over the past 8 months. She decided to get some help today and presented to the emergency department for medical clearance prior to going to detox. Laboratory tests show significant metabolic acidosis with a carbon dioxide level of 11, anion gap of 31, and arterial blood gases consistent with metabolic acidosis with respiratory compensation. She strongly denies any history of methanol intake, ethylene glycol, or inhalations. Salicylate level is low and she has no history of diabetes or evidence of ketoacidosis. Alcohol level was elevated on admission, she is already showing some symptoms of alcohol withdrawal. On admission she was started on gabapentin 400 mg every 8 hours for management of alcohol withdrawal. She was given vigorous IV fluid replacement as well as a banana bag. Alcohol withdrawal protocol was initiated because of high likelihood of worsening alcohol withdrawal. By the following morning metabolic acidosis had resolved with normalization of her lactic acid level, anion gap, and carbon dioxide level. On follow-up labs in the morning of discharge she was noted to be anemic with microcytic indices. Ferritin level and iron levels were found to be within normal range. Anemia is likely secondary to nutritional factors and follow-up hemoglobin level should be obtained on an outpatient basis. She has significant symptoms of anxiety and is currently treated with Effexor. Dose of Effexor was increased during hospitalization from 50 mg twice daily to 75 mg twice daily. She had only mild symptoms of alcohol withdrawal and will be discharged to a detox facility. Activity will be as tolerated and she will resume her usual diet. She will be continued on gabapentin for management of the alcohol withdrawal. She will receive 400 mg of gabapentin every 8 hours for 3 more days, then 200 mg every 8 hours for 4 days. She will be given information concerning outpatient alcohol treatment. Follow-up appointment will be scheduled with her primary care provider within 1 week. - Patient Instructions Diet: Usual Diet as Tolerated Activity: As Tolerated Other/Special Instructions: Discharge to detox facility for management of alcohol withdrawal. Please schedule follow-up appointment with primary care provider within 1 week. - Discharge Plan *PRESCRIPTION DRUG MONITORING PROGRAM REVIEWED*: Not Applicable *COPY OF PRESCRIPTION DRUG MONITORING REPORT IN PATIENT ALEJANDRO: Not Applicable Prescriptions/Med Rec: Gabapentin [Neurontin] 400 mg PO Q8H #60 capsule Venlafaxine [Effexor] 75 mg PO BID #60 tablet Home Medications: Home Meds Aspirin [Vasquez Chewable Aspirin] 81 mg PO DAILY 03/02/16 [History] Cholecalciferol (Vitamin D3) [Vitamin D3] 2,000 unit PO DAILY 03/02/16 [History] Cyanocobalamin (Vitamin B-12) [Cyanocobalamin Injection] 1,000 mcg [id number] 03/02/16 [History] Cyanocobalamin (Vitamin B-12) [Vitamin B-12] 1,000 mcg SL DAILY 03/02/16 [ History] Levothyroxine Sodium 50 mcg PO DAILY 03/02/16 [History] Multivit with Iron,Minerals [Flintstones Complete] 1 each PO DAILY 03/02/16 [ History] Simvastatin 10 mg PO DAILY 03/02/16 [History] Thiamine [Vitamin B-1] 100 mg PO BEDTIME 03/02/16 [History] Gabapentin [Neurontin] 400 mg PO Q8H #60 capsule 09/03/19 [Rx] Venlafaxine [Effexor] 75 mg PO BID #60 tablet 09/03/19 [Rx] Referrals: Michelle Awad CNM [Primary Care Provider] - 09/11/19 1:30 pm (Please arrive 15 minutes early to register for your appointment.) - Discharge Summary/Plan Comment DC Time >30 min.: No - Patient Data Vitals - Most Recent: Last Vital Signs Temp 96.7 F L 09/03/19 07:53 Pulse 84 09/03/19 07:53 Resp 13 09/03/19 07:53 BP 120/85 09/03/19 07:53 Pulse Ox 98 09/03/19 07:53 Weight - Most Recent: 160 lb 4.417 oz I&O - Last 24 hours: Intake & Output 0309/03/19 09/03/19 22:59 06:59 14:59 Intake Total 1513 3525 Output Total 500 Balance 1513 3025 Lab Results - Last 24 hrs: Laboratory Results - last 24 hr 09/02/19 09/02/19 09/02/19 Range/Units 11:56 11:56 12:14 WBC 12.3 H (4.5-11.0) K/uL RBC 5.43 (3.30-5.50) M/uL Hgb 13.2 (12.0-15.0) g/dL Hct 40.8 (36.0-48.0) % MCV 75 L (80-98) fL MCH 24 L (27-31) pg MCHC 32 (32-36) % Plt Count 473 H (150-400) K/uL Neut % (Auto) 86 H (36-66) % Lymph % (Auto) 10 L (24-44) % [place] % (Auto) 4 (2-6) % Eos % (Auto) 0 L (2-4) % Baso % (Auto) 0 (0-1) % Puncture Site ABG pH (7.350-7.450) ABG pCO2 (35.0-42.0) mmHg ABG pO2 (75.0-100.0) mmHg ABG HCO3 (22.0-26.0) mmol/L ABG Total CO2 (21.0-25.0) mmol/L ABG O2 Saturation (95.0-98.0) % ABG O2 Content (15.0-23.0) %vol ABG Base Excess mm/L ABG Hemoglobin (12.0-16.0) g/dL ABG Oxyhemoglobin % ABG Carboxyhemoglobin (0.0-1.6) % ABG Methemoglobin % [place] Test VBG pH (7.350-7.450) O2 Delivery Device Sodium (140-148) mmol/L Potassium (3.6-5.2) mmol/L Chloride (100-108) mmol/L Carbon Dioxide (21-32) mmol/L Anion Gap (5.0-14.0) mmol/L BUN (7-18) mg/dL Creatinine (0.6-1.0) mg/dL Est Cr Clr Drug Dosing mL/min Estimated GFR (MDRD) (>60) Glucose (74-106) mg/dL Lactic Acid (0.4-2.0) mmol/L Calcium (8.5-10.1) mg/dL Iron (50-170) ug/dL TIBC (250-450) ug/dl % Saturation (20-55) % Ferritin (8-388) ng/ml Total Bilirubin (0.2-1.0) mg/dL AST (15-37) U/L ALT (12-78) U/L Alkaline Phosphatase (46-116) U/L Total Protein (6.4-8.2) g/dL Albumin (3.4-5.0) g/dL Globulin (2.3-3.5) g/dL Albumin/Globulin Ratio (1.2-2.2) Lipase (73-393) U/L TSH, Ultra Sensitive (0.358-3.740) uIU/mL Urine Color Yellow (YELLOW) Urine Appearance Cloudy A (CLEAR) Urine pH 5.5 (5.0-8.0) Ur Specific [place] >= 1.030 (1.008-1.030) Urine Protein 100 H (NEGATIVE) mg/dL Urine Glucose (UA) Negative (NEGATIVE) mg/dL Urine Ketones Negative (NEGATIVE) mg/dL Urine Occult Blood Trace-lysed H (NEGATIVE) Urine Nitrite Negative (NEGATIVE) Urine Bilirubin Negative (NEGATIVE) Urine Urobilinogen 0.2 (0.2-1.0) EU/dL Ur Leukocyte Esterase Negative (NEGATIVE) Urine RBC 0-5 (0-5) Urine WBC 0-5 (0-5) Ur Epithelial Cells Few Amorphous Sediment Few Urine Bacteria Moderate Urine Mucus Few Urine Other See note Salicylates (2.0-20.0) mg/dL Urine Opiates Screen Negative (NEGATIVE) Ur Oxycodone Screen Negative (NEGATIVE) Urine Methadone Screen Negative (NEGATIVE) Ur Propoxyphene Screen Negative (NEGATIVE) Ur Barbiturates Screen Negative (NEGATIVE) Ur Tricyclics Screen Negative (NEGATIVE) Ur Phencyclidine Scrn Negative (NEGATIVE) Ur Amphetamine Screen Negative (NEGATIVE) U Methamphetamines Scrn Negative (NEGATIVE) Urine MDMA Screen Negative (NEGATIVE) U Benzodiazepines Scrn Negative (NEGATIVE) U Cocaine Metab Screen Negative (NEGATIVE) U Marijuana (THC) Screen Negative (NEGATIVE) Ethyl Alcohol mg/dL 09/02/19 09/02/19 09/02/19 Range/Units 12:14 12:14 12:47 WBC (4.5-11.0) K/uL RBC (3.30-5.50) M/uL Hgb (12.0-15.0) g/dL Hct (36.0-48.0) % MCV (80-98) fL MCH (27-31) pg MCHC (32-36) % Plt Count (150-400) K/uL Neut % (Auto) (36-66) % Lymph % (Auto) (24-44) % [place] % (Auto) (2-6) % Eos % (Auto) (2-4) % Baso % (Auto) (0-1) % Puncture Site ABG pH (7.350-7.450) ABG pCO2 (35.0-42.0) mmHg ABG pO2 (75.0-100.0) mmHg ABG HCO3 (22.0-26.0) mmol/L ABG Total CO2 (21.0-25.0) mmol/L ABG O2 Saturation (95.0-98.0) % ABG O2 Content (15.0-23.0) %vol ABG Base Excess mm/L ABG Hemoglobin (12.0-16.0) g/dL ABG Oxyhemoglobin % ABG Carboxyhemoglobin (0.0-1.6) % ABG Methemoglobin % [place] Test VBG pH 7.231 L (7.350-7.450) O2 Delivery Device Sodium 134 L (140-148) mmol/L Potassium 4.0 (3.6-5.2) mmol/L Chloride 96 L (100-108) mmol/L Carbon Dioxide 11 L (21-32) mmol/L Anion Gap 31.0 H (5.0-14.0) mmol/L BUN 31 H (7-18) mg/dL Creatinine 1.0 (0.6-1.0) mg/dL Est Cr Clr Drug Dosing 55.68 mL/min Estimated GFR (MDRD) 59 L (>60) Glucose 152 H (74-106) mg/dL Lactic Acid (0.4-2.0) mmol/L Calcium 8.1 L (8.5-10.1) mg/dL Iron (50-170) ug/dL TIBC (250-450) ug/dl % Saturation (20-55) % Ferritin (8-388) ng/ml Total Bilirubin 0.7 (0.2-1.0) mg/dL AST 61 H (15-37) U/L ALT 70 (12-78) U/L Alkaline Phosphatase 147 H (46-116) U/L Total Protein 8.0 (6.4-8.2) g/dL Albumin 4.0 (3.4-5.0) g/dL Globulin 4.0 H (2.3-3.5) g/dL Albumin/Globulin Ratio 1.0 L (1.2-2.2) Lipase (73-393) U/L TSH, Ultra Sensitive (0.358-3.740) uIU/mL Urine Color (YELLOW) Urine Appearance (CLEAR) Urine pH (5.0-8.0) Ur Specific [place] (1.008-1.030) Urine Protein (NEGATIVE) mg/dL Urine Glucose (UA) (NEGATIVE) mg/dL Urine Ketones (NEGATIVE) mg/dL Urine Occult Blood (NEGATIVE) Urine Nitrite (NEGATIVE) Urine Bilirubin (NEGATIVE) Urine Urobilinogen (0.2-1.0) EU/dL Ur Leukocyte Esterase (NEGATIVE) Urine RBC (0-5) Urine WBC (0-5) Ur Epithelial Cells Amorphous Sediment Urine Bacteria Urine Mucus Urine Other Salicylates (2.0-20.0) mg/dL Urine Opiates Screen (NEGATIVE) Ur Oxycodone Screen (NEGATIVE) Urine Methadone Screen (NEGATIVE) Ur Propoxyphene Screen (NEGATIVE) Ur Barbiturates Screen (NEGATIVE) Ur Tricyclics Screen (NEGATIVE) Ur Phencyclidine Scrn (NEGATIVE) Ur Amphetamine Screen (NEGATIVE) U Methamphetamines Scrn (NEGATIVE) Urine MDMA Screen (NEGATIVE) U Benzodiazepines Scrn (NEGATIVE) U Cocaine Metab Screen (NEGATIVE) U Marijuana (THC) Screen (NEGATIVE) Ethyl Alcohol 138 mg/dL 09/02/19 09/02/19 09/02/19 Range/Units 12:48 13:27 13:27 WBC (4.5-11.0) K/uL RBC (3.30-5.50) M/uL Hgb (12.0-15.0) g/dL Hct (36.0-48.0) % MCV (80-98) fL MCH (27-31) pg MCHC (32-36) % Plt Count (150-400) K/uL Neut % (Auto) (36-66) % Lymph % (Auto) (24-44) % [place] % (Auto) (2-6) % Eos % (Auto) (2-4) % Baso % (Auto) (0-1) % Puncture Site ABG pH (7.350-7.450) ABG pCO2 (35.0-42.0) mmHg ABG pO2 (75.0-100.0) mmHg ABG HCO3 (22.0-26.0) mmol/L ABG Total CO2 (21.0-25.0) mmol/L ABG O2 Saturation (95.0-98.0) % ABG O2 Content (15.0-23.0) %vol ABG Base Excess mm/L ABG Hemoglobin (12.0-16.0) g/dL ABG Oxyhemoglobin % ABG Carboxyhemoglobin (0.0-1.6) % ABG Methemoglobin % [place] Test VBG pH (7.350-7.450) O2 Delivery Device Sodium (140-148) mmol/L Potassium (3.6-5.2) mmol/L Chloride (100-108) mmol/L Carbon Dioxide (21-32) mmol/L Anion Gap (5.0-14.0) mmol/L BUN (7-18) mg/dL Creatinine (0.6-1.0) mg/dL Est Cr Clr Drug Dosing mL/min Estimated GFR (MDRD) (>60) Glucose (74-106) mg/dL Lactic Acid 11.4 H (0.4-2.0) mmol/L Calcium (8.5-10.1) mg/dL Iron (50-170) ug/dL TIBC (250-450) ug/dl % Saturation (20-55) % Ferritin (8-388) ng/ml Total Bilirubin (0.2-1.0) mg/dL AST (15-37) U/L ALT (12-78) U/L Alkaline Phosphatase (46-116) U/L Total Protein (6.4-8.2) g/dL Albumin (3.4-5.0) g/dL Globulin (2.3-3.5) g/dL Albumin/Globulin Ratio (1.2-2.2) Lipase 275 (73-393) U/L TSH, Ultra Sensitive (0.358-3.740) uIU/mL Urine Color (YELLOW) Urine Appearance (CLEAR) Urine pH (5.0-8.0) Ur Specific [place] (1.008-1.030) Urine Protein (NEGATIVE) mg/dL Urine Glucose (UA) (NEGATIVE) mg/dL Urine Ketones (NEGATIVE) mg/dL Urine Occult Blood (NEGATIVE) Urine Nitrite (NEGATIVE) Urine Bilirubin (NEGATIVE) Urine Urobilinogen (0.2-1.0) EU/dL Ur Leukocyte Esterase (NEGATIVE) Urine RBC (0-5) Urine WBC (0-5) Ur Epithelial Cells Amorphous Sediment Urine Bacteria Urine Mucus Urine Other Salicylates 1.6 L (2.0-20.0) mg/dL Urine Opiates Screen (NEGATIVE) Ur Oxycodone Screen (NEGATIVE) Urine Methadone Screen (NEGATIVE) Ur Propoxyphene Screen (NEGATIVE) Ur Barbiturates Screen (NEGATIVE) Ur Tricyclics Screen (NEGATIVE) Ur Phencyclidine Scrn (NEGATIVE) Ur Amphetamine Screen (NEGATIVE) U Methamphetamines Scrn (NEGATIVE) Urine MDMA Screen (NEGATIVE) U Benzodiazepines Scrn (NEGATIVE) U Cocaine Metab Screen (NEGATIVE) U Marijuana (THC) Screen (NEGATIVE) Ethyl Alcohol mg/dL 09/02/19 09/02/19 09/02/19 Range/Units 13:32 19:16 19:16 WBC (4.5-11.0) K/uL RBC (3.30-5.50) M/uL Hgb (12.0-15.0) g/dL Hct (36.0-48.0) % MCV (80-98) fL MCH (27-31) pg MCHC (32-36) % Plt Count (150-400) K/uL Neut % (Auto) (36-66) % Lymph % (Auto) (24-44) % [place] % (Auto) (2-6) % Eos % (Auto) (2-4) % Baso % (Auto) (0-1) % Puncture Site Lt radial ABG pH 7.293 L (7.350-7.450) ABG pCO2 24.8 L (35.0-42.0) mmHg ABG pO2 118.0 H (75.0-100.0) mmHg ABG HCO3 11.6 L (22.0-26.0) mmol/L ABG Total CO2 10.6 L (21.0-25.0) mmol/L ABG O2 Saturation 96.2 (95.0-98.0) % ABG O2 Content 17.5 (15.0-23.0) %vol ABG Base Excess -13.2 mm/L ABG Hemoglobin 13.2 (12.0-16.0) g/dL ABG Oxyhemoglobin 93.6 % ABG Carboxyhemoglobin 0.5 (0.0-1.6) % ABG Methemoglobin 2.2 % [place] Test Passed VBG pH (7.350-7.450) O2 Delivery Device Room air Sodium 134 L (140-148) mmol/L Potassium 4.2 (3.6-5.2) mmol/L Chloride 100 (100-108) mmol/L Carbon Dioxide 21 (21-32) mmol/L Anion Gap 17.2 H (5.0-14.0) mmol/L BUN 21 H (7-18) mg/dL Creatinine 0.8 (0.6-1.0) mg/dL Est Cr Clr Drug Dosing 69.57 mL/min Estimated GFR (MDRD) > 60 (>60) Glucose 170 H (74-106) mg/dL Lactic Acid 2.7 H (0.4-2.0) mmol/L Calcium 7.6 L (8.5-10.1) mg/dL Iron (50-170) ug/dL TIBC (250-450) ug/dl % Saturation (20-55) % Ferritin (8-388) ng/ml Total Bilirubin (0.2-1.0) mg/dL AST (15-37) U/L ALT (12-78) U/L Alkaline Phosphatase (46-116) U/L Total Protein (6.4-8.2) g/dL Albumin (3.4-5.0) g/dL Globulin (2.3-3.5) g/dL Albumin/Globulin Ratio (1.2-2.2) Lipase (73-393) U/L TSH, Ultra Sensitive (0.358-3.740) uIU/mL Urine Color (YELLOW) Urine Appearance (CLEAR) Urine pH (5.0-8.0) Ur Specific [place] (1.008-1.030) Urine Protein (NEGATIVE) mg/dL Urine Glucose (UA) (NEGATIVE) mg/dL Urine Ketones (NEGATIVE) mg/dL Urine Occult Blood (NEGATIVE) Urine Nitrite (NEGATIVE) Urine Bilirubin (NEGATIVE) Urine Urobilinogen (0.2-1.0) EU/dL Ur Leukocyte Esterase (NEGATIVE) Urine RBC (0-5) Urine WBC (0-5) Ur Epithelial Cells Amorphous Sediment Urine Bacteria Urine Mucus Urine Other Salicylates (2.0-20.0) mg/dL Urine Opiates Screen (NEGATIVE) Ur Oxycodone Screen (NEGATIVE) Urine Methadone Screen (NEGATIVE) Ur Propoxyphene Screen (NEGATIVE) Ur Barbiturates Screen (NEGATIVE) Ur Tricyclics Screen (NEGATIVE) Ur Phencyclidine Scrn (NEGATIVE) Ur Amphetamine Screen (NEGATIVE) U Methamphetamines Scrn (NEGATIVE) Urine MDMA Screen (NEGATIVE) U Benzodiazepines Scrn (NEGATIVE) U Cocaine Metab Screen (NEGATIVE) U Marijuana (THC) Screen (NEGATIVE) Ethyl Alcohol mg/dL 09/03/19 09/03/19 09/03/19 Range/Units 04:50 04:50 04:50 WBC 7.7 (4.5-11.0) K/uL RBC 3.99 (3.30-5.50) M/uL Hgb 10.0 L D (12.0-15.0) g/dL Hct 30.2 L (36.0-48.0) % MCV 76 L (80-98) fL MCH 25 L (27-31) pg MCHC 33 (32-36) % Plt Count 292 (150-400) K/uL Neut % (Auto) 65 (36-66) % Lymph % (Auto) 23 L (24-44) % [place] % (Auto) 10 H (2-6) % Eos % (Auto) 1 L (2-4) % Baso % (Auto) 0 (0-1) % Puncture Site ABG pH (7.350-7.450) ABG pCO2 (35.0-42.0) mmHg ABG pO2 (75.0-100.0) mmHg ABG HCO3 (22.0-26.0) mmol/L ABG Total CO2 (21.0-25.0) mmol/L ABG O2 Saturation (95.0-98.0) % ABG O2 Content (15.0-23.0) %vol ABG Base Excess mm/L ABG Hemoglobin (12.0-16.0) g/dL ABG Oxyhemoglobin % ABG Carboxyhemoglobin (0.0-1.6) % ABG Methemoglobin % [place] Test VBG pH (7.350-7.450) O2 Delivery Device Sodium (140-148) mmol/L Potassium (3.6-5.2) mmol/L Chloride (100-108) mmol/L Carbon Dioxide (21-32) mmol/L Anion Gap (5.0-14.0) mmol/L BUN (7-18) mg/dL Creatinine (0.6-1.0) mg/dL Est Cr Clr Drug Dosing mL/min Estimated GFR (MDRD) (>60) Glucose (74-106) mg/dL Lactic Acid 1.5 (0.4-2.0) mmol/L Calcium (8.5-10.1) mg/dL Iron (50-170) ug/dL TIBC (250-450) ug/dl % Saturation (20-55) % Ferritin (8-388) ng/ml Total Bilirubin (0.2-1.0) mg/dL AST (15-37) U/L ALT (12-78) U/L Alkaline Phosphatase (46-116) U/L Total Protein (6.4-8.2) g/dL Albumin (3.4-5.0) g/dL Globulin (2.3-3.5) g/dL Albumin/Globulin Ratio (1.2-2.2) Lipase (73-393) U/L TSH, Ultra Sensitive 3.179 (0.358-3.740) uIU/mL Urine Color (YELLOW) Urine Appearance (CLEAR) Urine pH (5.0-8.0) Ur Specific [place] (1.008-1.030) Urine Protein (NEGATIVE) mg/dL Urine Glucose (UA) (NEGATIVE) mg/dL Urine Ketones (NEGATIVE) mg/dL Urine Occult Blood (NEGATIVE) Urine Nitrite (NEGATIVE) Urine Bilirubin (NEGATIVE) Urine Urobilinogen (0.2-1.0) EU/dL Ur Leukocyte Esterase (NEGATIVE) Urine RBC (0-5) Urine WBC (0-5) Ur Epithelial Cells Amorphous Sediment Urine Bacteria Urine Mucus Urine Other Salicylates (2.0-20.0) mg/dL Urine Opiates Screen (NEGATIVE) Ur Oxycodone Screen (NEGATIVE) Urine Methadone Screen (NEGATIVE) Ur Propoxyphene Screen (NEGATIVE) Ur Barbiturates Screen (NEGATIVE) Ur Tricyclics Screen (NEGATIVE) Ur Phencyclidine Scrn (NEGATIVE) Ur Amphetamine Screen (NEGATIVE) U Methamphetamines Scrn (NEGATIVE) Urine MDMA Screen (NEGATIVE) U Benzodiazepines Scrn (NEGATIVE) U Cocaine Metab Screen (NEGATIVE) U Marijuana (THC) Screen (NEGATIVE) Ethyl Alcohol mg/dL 09/03/19 09/03/19 09/03/19 Range/Units 04:50 08:55 08:55 WBC (4.5-11.0) K/uL RBC (3.30-5.50) M/uL Hgb (12.0-15.0) g/dL Hct (36.0-48.0) % MCV (80-98) fL MCH (27-31) pg MCHC (32-36) % Plt Count (150-400) K/uL Neut % (Auto) (36-66) % Lymph % (Auto) (24-44) % [place] % (Auto) (2-6) % Eos % (Auto) (2-4) % Baso % (Auto) (0-1) % Puncture Site ABG pH (7.350-7.450) ABG pCO2 (35.0-42.0) mmHg ABG pO2 (75.0-100.0) mmHg ABG HCO3 (22.0-26.0) mmol/L ABG Total CO2 (21.0-25.0) mmol/L ABG O2 Saturation (95.0-98.0) % ABG O2 Content (15.0-23.0) %vol ABG Base Excess mm/L ABG Hemoglobin (12.0-16.0) g/dL ABG Oxyhemoglobin % ABG Carboxyhemoglobin (0.0-1.6) % ABG Methemoglobin % [place] Test VBG pH (7.350-7.450) O2 Delivery Device Sodium 139 L (140-148) mmol/L Potassium 4.3 (3.6-5.2) mmol/L Chloride 105 (100-108) mmol/L Carbon Dioxide 26 (21-32) mmol/L Anion Gap 12.3 (5.0-14.0) mmol/L BUN 17 (7-18) mg/dL Creatinine 0.6 (0.6-1.0) mg/dL Est Cr Clr Drug Dosing 92.76 mL/min Estimated GFR (MDRD) > 60 (>60) Glucose 101 (74-106) mg/dL Lactic Acid (0.4-2.0) mmol/L Calcium 7.7 L (8.5-10.1) mg/dL Iron 125 (50-170) ug/dL TIBC 548 H (250-450) ug/dl % Saturation 23 (20-55) % Ferritin 23 (8-388) ng/ml Total Bilirubin (0.2-1.0) mg/dL AST (15-37) U/L ALT (12-78) U/L Alkaline Phosphatase (46-116) U/L Total Protein (6.4-8.2) g/dL Albumin (3.4-5.0) g/dL Globulin (2.3-3.5) g/dL Albumin/Globulin Ratio (1.2-2.2) Lipase (73-393) U/L TSH, Ultra Sensitive (0.358-3.740) uIU/mL Urine Color (YELLOW) Urine Appearance (CLEAR) Urine pH (5.0-8.0) Ur Specific [place] (1.008-1.030) Urine Protein (NEGATIVE) mg/dL Urine Glucose (UA) (NEGATIVE) mg/dL Urine Ketones (NEGATIVE) mg/dL Urine Occult Blood (NEGATIVE) Urine Nitrite (NEGATIVE) Urine Bilirubin (NEGATIVE) Urine Urobilinogen (0.2-1.0) EU/dL Ur Leukocyte Esterase (NEGATIVE) Urine RBC (0-5) Urine WBC (0-5) Ur Epithelial Cells Amorphous Sediment Urine Bacteria Urine Mucus Urine Other Salicylates (2.0-20.0) mg/dL Urine Opiates Screen (NEGATIVE) Ur Oxycodone Screen (NEGATIVE) Urine Methadone Screen (NEGATIVE) Ur Propoxyphene Screen (NEGATIVE) Ur Barbiturates Screen (NEGATIVE) Ur Tricyclics Screen (NEGATIVE) Ur Phencyclidine Scrn (NEGATIVE) Ur Amphetamine Screen (NEGATIVE) U Methamphetamines Scrn (NEGATIVE) Urine MDMA Screen (NEGATIVE) U Benzodiazepines Scrn (NEGATIVE) U Cocaine Metab Screen (NEGATIVE) U Marijuana (THC) Screen (NEGATIVE) Ethyl Alcohol mg/dL Med Orders - Current: Current Medications Acetaminophen (Tylenol) 650 mg PO Q4H PRN PRN Reason: Pain (Mild 1-3)/fever Aspirin (Aspirin) 81 mg PO DAILY [facility] Last Admin: 09/03/19 08:19 Dose: 81 mg Folic Acid (Folic Acid) 1 mg PO DAILY [facility] Last Admin: 09/03/19 08:20 Dose: 1 mg Gabapentin (Neurontin) 400 mg PO Q8H JAVIER Stop: 09/06/19 08:01 Last Admin: 09/03/19 08:20 Dose: 400 mg Sodium Chloride (Normal Saline) 1,000 mls @ 125 mls/hr IV ASDIRECTED [facility] Last Admin: 09/03/19 08:41 Dose: 125 mls/hr Levothyroxine Sodium (Synthroid) 50 mcg PO DAILY@0730 [facility] Last Admin: 09/03/19 08:19 Dose: 50 mcg Lorazepam (Ativan) 0 mg IV ASDIRECTED [facility]; Protocol Last Admin: 09/03/19 00:33 Dose: 2 mg Lorazepam (Ativan) 0 mg PO ASDIRECTED [facility]; Protocol Last Admin: 09/03/19 08:41 Dose: 1 mg Ondansetron HCl (Zofran) 4 mg IV Q4H PRN PRN Reason: Nausea/Vomiting Last Admin: 09/02/19 15:54 Dose: 4 mg Polyethylene Glycol (Miralax) 17 gm PO DAILY PRN PRN Reason: Constipation Simvastatin (Zocor) 10 mg PO BEDTIME [facility] Sodium Chloride (Saline Flush) 10 ml FLUSH ASDIRECTED PRN PRN Reason: Keep Vein Open Thiamine HCl (Vitamin B-1) 100 mg PO BEDTIME [facility] Last Admin: 09/02/19 20:04 Dose: 100 mg Venlafaxine HCl (Effexor) 75 mg PO BID [facility] Last Admin: 09/03/19 08:20 Dose: 75 mg Discontinued Medications Sodium Chloride (Normal Saline) 1,000 mls @ 999 mls/hr IV ASDIRECTED [facility] Last Admin: 09/02/19 14:03 Dose: 999 mls/hr Multivitamins/Minerals 10 ml/Thiamine HCl 100 mg/ Folic Acid 1 mg/ Magnesium Sulfate 2 gm/ Sodium Chloride 1,015.2 mls @ 100 mls/hr IV ONETIME ONE Stop: 09/03/19 02:09 Last Admin: 09/02/19 16:15 Dose: 100 mls/hr Sodium Chloride (Normal Saline) 1,000 mls @ 250 mls/hr IV ASDIRECTED [facility] Stop: 09/02/19 23:31 Last Admin: 09/02/19 19:48 Dose: 250 mls/hr Lorazepam (Ativan) 1 mg PO TID [facility] Last Admin: 09/02/19 12:16 Dose: 1 mg Ondansetron HCl (Zofran Odt) 4 mg PO ONETIME ONE Stop: 09/02/19 12:13 Last Admin: 09/02/19 12:16 Dose: 4 mg Simvastatin (Zocor) 10 mg PO DAILY JAVIER - Exam General: Reports: Alert, Oriented, Cooperative, Mild Distress Lungs: Reports: Clear to Auscultation, Normal Respiratory Effort Cardiovascular: Reports: Regular Rate, Regular Rhythm, No Murmurs GI/Abdominal Exam: Soft, Non-Tender, No Organomegaly, No Distention *Q Meaningful Use (DIS) - VTE *Q VTE Pharmacological Contraindications *Q: Not Candidate LT Anticoag
== END 2019-09-03 11:02 | disposition other institution (70) | DRG 897 ==
LOC: JP.ED 11:16 → JP.ICU 14:38
PROVIDERS: ADMIT Hospitalist; ATTEND Hospitalist
DX: F10.129 Alcohol abuse with intoxication, unspecified (principal); E87.2 Acidosis; E86.0 Dehydration; D53.9 Nutritional anemia, unspecified; E78.00 Pure hypercholesterolemia, unspecified; K59.09 Other constipation; K21.9 Gastro-esophageal reflux disease without esophagitis; F41.0 Panic disorder [episodic paroxysmal anxiety]; F32.9 Major depressive disorder, single episode, unspecified; E53.8 Deficiency of other specified B group vitamins; Y90.6 Blood alcohol level of 120-199 mg/100 ml; Z90.49 Acquired absence of other specified parts of digestive tract; Z88.0 Allergy status to penicillin; Z88.1 Allergy status to other antibiotic agents; Z88.2 Allergy status to sulfonamides; Z79.82 Long term (current) use of aspirin; Z79.890 Hormone replacement therapy
CPT/HCPCS: 36415; 36600; 80048; 80053; 80305-QW; 80307; 81001; 82728; 82800; 82803; 83550; 83605; 83690; 84443; 85025; 96360; 99285-25; A9270-GY; J2060; J2405; J3411; J3475; J3490; J7030

== ENCOUNTER 2020-03-06 04:43 | Emergency (ER) | payer MEDICAID ==
[2020-03-06 04:58] VITALS: BP 158/89; PULSE 111
[2020-03-06] MEDS ORDERED: LORazepam 1 MG Tab PO ONE (05:19)
--- NOTE | 2020-03-06 05:33 | EDM.PDOCBH ---
ED HPI GENERAL MEDICAL PROBLEM - General Chief Complaint: Drug or Alcohol Abuse Stated Complaint: EVAL Time Seen by Provider: 03/06/20 05:20 Source of Information: Reports: Patient, Old Records, RN History Limitations: Reports: No Limitations - History of Present Illness INITIAL COMMENTS - FREE TEXT/NARRATIVE: 50 yo female presents requesting medical clearance before going to detox at [facility]. Last drank at 10 pm tonight. Has a cart driver to transport. Has been to detox in the past. Denies any recent illnesses or exposures. No fever, chest pain, SOB, diarrhea, bloody stools, abdominal pain or rashes. No seizures or FELICIANO. No dysuria. Onset: Unknown/Unsure Duration: Chronic (ETOH use) Location: Reports: Generalized Quality: Reports: Other (no pain) Severity: Severe Improves with: Reports: Other (Detox) Worsens with: Reports: Other (ETOH consumption) Context: Reports: Other (See HPI) Associated Symptoms: Reports: Other (anxiety/tremors) Treatments ACCOUNT SOLUTIONS ANALYST: Reports: Other (see below) (none) denies pain Pain Score (Numeric/FACES): 0 - Related Data Allergies Allergy/AdvReac Type Severity Reaction Status Date / Time amoxicillin [Amoxicillin] Allergy Hives Verified 03/06/20 04:55 levofloxacin [From Levaquin] Allergy Hives Verified 03/06/20 04:55 Sulfa (Sulfonamide Allergy Hives Verified 03/06/20 04:55 Antibiotics) Home Meds: Home Meds Levothyroxine Sodium 50 mcg PO DAILY 03/02/16 [History] Simvastatin 10 mg PO DAILY 03/02/16 [History] Venlafaxine [Effexor] 75 mg PO BID #60 tablet 09/03/19 [Rx] amLODIPine Besylate [Amlodipine Besylate] 5 mg PO DAILY 03/06/20 [History] busPIRone HCl [Buspirone HCl] 7.5 mg PO BID 03/06/20 [History] Past Medical History HEENT History: Reports: None Cardiovascular History: Reports: High Cholesterol, Hypertension Respiratory History: Reports: None Gastrointestinal History: Reports: Chronic Constipation, GERD, Hemorrhoids, Other (See Below) Other Gastrointestinal History: partial gastrectomy Genitourinary History: Reports: None SENIOR EDITOR History: Reports: Other SENIOR EDITOR History: c section X3 Musculoskeletal History: Reports: Arthritis, Back Pain, Chronic, Neck Pain, Chronic, Osteoarthritis Other Musculoskeletal History: bilateral hand pain Neurological History: Reports: None Psychiatric History: Reports: Anxiety, Depression, Panic Attack Endocrine/Metabolic History: Reports: Hypothyroidism, Vitamin D Deficiency Hematologic History: Reports: Anemia, B12 Deficiency, Folic Acid, Iron De ficiency Immunologic History: Reports: None Oncologic (Cancer) History: Reports: None Dermatologic History: Reports: None - Infectious Disease History Infectious Disease History: Reports: Chicken Pox - Past Surgical History Head Surgeries/Procedures: Reports: None HEENT Surgical History: Reports: Oral Surgery Cardiovascular Surgical History: Reports: None GI Surgical History: Reports: Cholecystectomy, EGD, Esophageal Dilatation, Hpi Fundoplication Female Surgical History: Reports: Breast Biopsy, Section Endocrine Surgical History: Reports: None Musculoskeletal Surgical History: Reports: Arthroscopic Procedure, Carpal Tunnel, Shoulder Surgery Other Musculoskeletal Surgeries/Procedures:: pins in fingers Oncologic Surgical History: Reports: Lumpectomy Social & Family History - Tobacco Use Smoking Status *Q: Never Smoker - Caffeine Use Caffeine Use: Reports: Coffee - Recreational Drug Use Recreational Drug Use: No ED ROS GENERAL - Review of Systems Review Of Systems: See Below Constitutional: Reports: No Symptoms HEENT: Reports: No Symptoms Respiratory: Reports: No Symptoms Cardiovascular: Reports: No Symptoms Endocrine: Reports: No Symptoms GI/Abdominal: Reports: No Symptoms : Reports: No Symptoms Musculoskeletal: Reports: No Symptoms Skin: Reports: Bruising Neurological: Reports: Tremors Psychiatric: Reports: Anxiety ED EXAM, BEHAVIORAL HEALTH - Physical Exam Exam: See Below Exam Limited By: No Limitations General Appearance: Alert, WD/WN, No Apparent Distress, Anxious Eye Exam: Bilateral Eye: EOMI, Normal Inspection, PERRL Ears: Normal External Exam, Normal Canal, Hearing Grossly Normal Nose: Normal Inspection, No Blood Throat/Mouth: Normal Inspection, Normal Lips, Normal Oropharynx, Normal Voice, No Airway Compromise Head: Atraumatic, Normocephalic Neck: Normal Inspection Respiratory/Chest: No Respiratory Distress, Lungs Clear, Normal Breath Sounds, No Accessory Muscle Use Cardiovascular: Regular Rate, Rhythm, No Edema, Tachycardia GI/Abdominal: Normal Bowel Sounds, Soft, Non-Tender, No Distention. No: Distended, Guarding, Rigid, Rebound, Tender Back Exam: Normal Inspection. No: CVA Tenderness (R), CVA Tenderness (L) Extremities: Normal Inspection, Normal Range of Motion, Non-Tender, No Pedal Edema Neurological: Alert, Normal Mood/Affect, CN II-XII Intact, Normal Cognition, No Motor/Sensory Deficits, Oriented x 3 Psychiatric: Alert, Normal Affect, Normal Cognition, Normal Mood, Oriented, Other (mildly anxious) Skin Exam: Warm, Dry, Intact, Normal color, No rash, Ecchymosis (scattered on legs) COURSE, BEHAVIORAL HEALTH COMP - Course Vital Signs: Last Vital Signs Temp 36.8 C 03/06/20 04:58 Pulse 111 H 03/06/20 04:58 Resp 17 03/06/20 04:58 BP 158/89 H 03/06/20 04:58 Pulse Ox 97 03/06/20 04:58 Orders, Labs, Meds: Active Orders 24 hr Category Date Time Status ETOH [ETHANOL BLOOD MEDICAL] [CHEM] Stat Lab 03/06/20 05:13 Ordered Medications Discontinued Medications Generic Name Dose Route Start Last Admin Trade Name Freq PRN Reason Stop Dose Admin Lorazepam 1 mg 03/06/20 05:19 03/06/20 05:26 Ativan PO 03/06/20 05:20 1 mg ONETIME ONE Administration Departure - Departure Time of Disposition: 05:45 Disposition: DC/Tfer to Other 70 Condition: Fair Clinical Impression: ETOH abuse - Discharge Information *PRESCRIPTION DRUG MONITORING PROGRAM REVIEWED*: Not Applicable *COPY OF PRESCRIPTION DRUG MONITORING REPORT IN PATIENT ALEJANDRO: Not Applicable Instructions: Alcohol Use Disorder Referrals: Michelle Awad CNM [Primary Care Provider] - Forms: ED Department Discharge Additional Instructions: Go directly to [facility]. Return here as needed. Sepsis Event Note (ED) - Evaluation Sepsis Screening Result: No Definite Risk - Focused Exam Vital Signs: Vital Signs Temp Pulse Resp BP Pulse Ox 03/06/20 04:58 36.8 C 111 H 17 158/89 H 97 03/06/20 04:56 36.8 C 111 H 17 158/89 H 97 - My Orders Last 24 Hours: My Active Orders 03/06/20 05:13 ETOH [ETHANOL BLOOD MEDICAL] [CHEM] Stat - Assessment/Plan Last 24 Hours: My Active Orders 03/06/20 05:13 ETOH [ETHANOL BLOOD MEDICAL] [CHEM] Stat
== END 2020-03-06 05:46 | disposition other institution (70) ==
LOC: JP.ED 04:43
DX: F10.129 Alcohol abuse with intoxication, unspecified (principal); R58 Hemorrhage, not elsewhere classified; F41.9 Anxiety disorder, unspecified; I10 Essential (primary) hypertension; F32.9 Major depressive disorder, single episode, unspecified; E03.9 Hypothyroidism, unspecified; E78.00 Pure hypercholesterolemia, unspecified; Z88.1 Allergy status to other antibiotic agents; Z88.2 Allergy status to sulfonamides; Z79.899 Other long term (current) drug therapy; Z90.49 Acquired absence of other specified parts of digestive tract; Y90.6 Blood alcohol level of 120-199 mg/100 ml
CPT/HCPCS: 36415; 80307; 99284; A9270